=== PATIENT | female | born 1985 | race Asian ===

== ENCOUNTER 2017-10-29 19:45 | Emergency (ER) | payer BC | END 2017-10-29 21:30 | disposition home or self-care (01) | LOC: SCSER 19:45 | DX: S39.012A Strain of muscle, fascia and tendon of lower back, initial encounter (principal); S16.1XXA Strain of muscle, fascia and tendon at neck level, initial encounter; V43.52XA Car driver injured in collision with other type car in traffic accident, initial encounter | CPT/HCPCS: 99283 ==